=== PATIENT | female | born 1965 | race American Indian/Alaskan Native ===

== ENCOUNTER 2017-11-20 13:54 | Inpatient (IN) | payer BC ==
[2017-11-20] MEDS ORDERED: NACL 0.9% 1000 ML 1,000 ML IV ONE ×4 (14:20→21:47)
[2017-11-20] MEDS ORDERED: ZOFRAN ODT PO ONE (14:27)
--- NOTE | 2017-11-20 14:33 | Emergency Department Report ---
Chief Complaint: Hyperglycemia Stated Complaint: HIGH BLOOD SUGAR WITH VOMITING Time Seen by Provider: 11/20/17 14:20 - HPI History of Present Illness: History of diabetes recent medication change. They doubled her metformin and started glargine insulin at night, no missed doses, saw pcp this week and it was high but pt states n/v, polyuria, worsening glucose control, checking glu at home and been running 400's. hx of htn and lipid d/o, here eval n/v, elev glucose, polyuria. - Exam Vital Signs: Vital Signs 11/20/17 14:01 Temperature 98.6 F Pulse Rate 118 H Respiratory 18 Rate Blood Pressure 106/57 O2 Sat by Pulse 100 Oximetry Physical Exam: Awake alert oriented 3 nontoxic afebrile abdomen soft. MSE screening note: Focused history and physical exam performed. Due to findings the following was ordered: IV and labs ordered with saline bolus and Zofran patient to main edfor further eval ED Disposition for MSE Condition: Stable
[2017-11-20 15:27] LABS: Basophils # (Auto) 0.1 K/mm3 (0.0-0.1); Basophils % (Auto) 0.7 % (0.0-1.8); Eosinophils # (Auto) 0.1 K/mm3 (0.0-0.4); Hematocrit 45.2 % (30.3-42.9); Hemoglobin 14.8 gm/dl (10.1-14.3); Lymphocytes # (Auto) 1.8 K/mm3 (1.2-5.4); Lymphocytes % (Auto) 24.8 % (13.4-35.0); Mean Corpuscular HGB Conc 33 % (30-34); Mean Corpuscular Hemoglobin 30 pg (28-32); Mean Corpuscular Volume 93 fl (79-97); Monocytes # (Auto) 0.9 K/mm3 (0.0-0.8); Monocytes % (Auto) 11.9 % (0.0-7.3); Platelet Count 193 K/mm3 (140-440); Red Blood Count 4.89 M/mm3 (3.65-5.03); Red Cell Distribution Width 16.8 % (13.2-15.2)
[2017-11-20 15:46] LABS: Alanine Aminotransferase 34 units/L (7-56); Albumin 4.2 g/dL (3.9-5); BUN/Creatinine Ratio 6; Blood Urea Nitrogen 5 mg/dL (7-17); Hemolysis Index 8
[2017-11-20] MEDS ORDERED: ZOFRAN ONE (16:54)
[2017-11-20] MEDS ORDERED: NACL 0.9% 1000 ML 2,000 ML IV ONE (17:35)
[2017-11-20] MEDS ORDERED: CALCIUM CHLORIDE 1,000 MG in NACL 0.9% 100 ML IV ONE (17:37)
[2017-11-20 18:15] LABS: Magnesium 1.5 mg/dL (1.7-2.3)
[2017-11-20] MEDS ORDERED: ZOFRAN IV ONE (18:18)
--- NOTE | 2017-11-20 18:21 | Emergency Department Report ---
- General Chief complaint: Hyperglycemia Stated complaint: HIGH BLOOD SUGAR WITH VOMITING Time Seen by Provider: 11/20/17 14:20 Source: patient Mode of arrival: Ambulatory Limitations: No Limitations - History of Present Illness Initial comments: 52 YO FEMALE WITH N/V FOR 2 DAYS AND HYPERGLYCEMIA. PT STATES THAT SHE HAS NOT BEEN ABLE TO KEEP ANYTHING DOWN. SHE HAS NOT BEEN ABLE TO KEEP HER SUGAR UNDER CONTROL. PT HAD A LARGE SANDWICH IN FRONT OF HER READY TO EAT IT WHEN I APPEARED IN THE ROOM. PT IS STILL NAUSEATED AFTER RECEIVING 4MG OF ZOFRAN IV. SHE HAS ABDOMINAL PAIN ONLY AFTER VOMITING. SHE HAS INCREASED THIRST AND URINATIONS, DENIES FEVER, CHEST PAIN . Severity scale (0 -10): 0 - Related Data Home Medications Medication Instructions Recorded Confirmed Last Taken Lisinopril [Zestril] 20 mg PO QDAY 12/18/15 12/18/15 Unknown metFORMIN [Glucophage] 500 mg PO BID 12/18/15 12/18/15 Unknown Allergies Allergy/AdvReac Type Severity Reaction Status Date / Time latex Allergy Swelling Verified 12/03/15 12:15 ED Review of Systems ROS: Stated complaint: HIGH BLOOD SUGAR WITH VOMITING Other details as noted in HPI Constitutional: denies: chills, fever Eyes: denies: eye pain, eye discharge, vision change ENT: denies: ear pain, throat pain Respiratory: denies: cough, shortness of breath, wheezing Cardiovascular: denies: chest pain, palpitations Endocrine: no symptoms reported, increased thirst, increased urine Gastrointestinal: nausea. denies: abdominal pain, diarrhea Genitourinary: denies: urgency, dysuria, discharge Musculoskeletal: denies: back pain, joint swelling, arthralgia Skin: denies: rash, lesions Neurological: denies: headache, weakness, paresthesias Psychiatric: denies: anxiety, depression Hematological/Lymphatic: denies: easy bleeding, easy bruising ED Past Medical Hx - Past Medical History Hx Hypertension: Yes Hx Congestive Heart Failure: No Hx Diabetes: Yes Hx Asthma: No Hx COPD: No Additional medical history: high cholestrol - Surgical History Additional Surgical History: tubal ligation. ectopic x 2. right leg surgery x 2 - Social History Smoking Status: Current Every Day Smoker Substance Use Type: Alcohol - Medications Home Medications: Home Medications Medication Instructions Recorded Confirmed Last Taken Type Lisinopril [Zestril] 20 mg PO QDAY 12/18/15 12/18/15 Unknown History metFORMIN [Glucophage] 500 mg PO BID 12/18/15 12/18/15 Unknown History ED Physical Exam - General Limitations: No Limitations ED Course Vital Signs 11/20/17 11/20/17 11/20/17 14:01 16:33 17:00 Temperature 98.6 F Pulse Rate 118 H 109 H 112 H Respiratory 18 23 24 Rate Blood Pressure 106/57 98/49 Blood Pressure [Left] O2 Sat by Pulse 100 98 98 Oximetry 11/20/17 11/20/17 11/20/17 17:30 18:00 18:43 Temperature Pulse Rate 104 H 101 H 105 H Respiratory 24 23 16 Rate Blood Pressure 94/57 82/60 98/49 Blood Pressure [Left] O2 Sat by Pulse 97 98 Oximetry 11/20/17 11/20/17 11/20/17 19:15 20:00 20:50 Temperature 98.9 F Pulse Rate 89 90 97 H Respiratory 16 20 20 Rate Blood Pressure Blood Pressure 113/73 112/65 102/63 [Left] O2 Sat by Pulse 99 97 97 Oximetry 11/20/17 22:20 Temperature 98.8 F Pulse Rate 92 H Respiratory 18 Rate Blood Pressure Blood Pressure 119/69 [Left] O2 Sat by Pulse 98 Oximetry ED Medical Decision Making - Lab Data Result diagrams: 11/20/17 14:56 11/20/17 21:55 - Radiology Data Radiology results: report reviewed (ACUTE ABD:NEGATIVE) Critical care attestation.: If time is entered above; I have spent that time in minutes in the direct care of this critically ill patient, excluding procedure time. 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
--- NOTE | 2017-11-20 18:29 | History and Physical Report ---
History of Present Illness Chief complaint: My sugar is high, and i keep throwing up History of present illness: 52 YO Female with DM, HTN, HLD, Obesity, Metabolic Syndrome, presents to ED for evaluation. Pt states that she has experienced high blood glucose levels(above 450) for the past 2 days, as well as nausea and multiple episodes of vomiting. Pt states that she has not been able to keep any food down as well. Pt acknowledges polyuria, polydipsia. Pt denies fever, chills, Palpitations, syncope, BRBPR, recent ill contacts, productive cough, hematuria, or trauma. Pt seen and evaluated in ED and found to have DKA. Pt treated IAW DKA protocol and initiated on insulin drip. Pt admitted to ICU. Past History Past Medical History: diabetes, hypertension, hyperlipidemia, other (Nicotine Dependence) Past Surgical History: Other (Tubal ligation, Ectopic , R leg surgery) Social history: single, smoking. denies: alcohol abuse, prescription drug abuse Medications and Allergies Allergies Allergy/AdvReac Type Severity Reaction Status Date / Time latex Allergy Swelling Verified 12/03/15 12:15 Home Medications Medication Instructions Recorded Confirmed Last Taken Type Lisinopril [Zestril] 20 mg PO QDAY 12/18/15 12/18/15 Unknown History metFORMIN [Glucophage] 500 mg PO BID 12/18/15 12/18/15 Unknown History Active Meds: Active Medications Sodium Chloride (Nacl 0.9% 1000 Ml) 1,000 mls @ 999 mls/hr IV BOLUS ONE Stop: 11/20/17 19:18 Potassium Chloride (Kcl 10meq/100ml) 10 meq in 100 mls @ 100 mls/hr IV Q1H RASHI Stop: 11/20/17 22:59 Review of Systems Constitutional: other (high blood glucose), no weight loss, no weight gain, no fever, no chills Ears, nose, mouth and throat: no ear pain, no ear discharge, no tinnitis, no decreased hearing, no nose pain Breasts: no change in shape, no swelling, no mass Cardiovascular: no chest pain, no orthopnea, no palpitations, no rapid/ irregular heart beat, no edema Gastrointestinal: nausea, vomiting Genitourinary Female: no pelvic pain, no flank pain, no menorrhagia, no dysuria , no urinary frequency, no urgency Rectal: no pain, no incontinence, no bleeding Musculoskeletal: no neck stiffness, no neck pain, no shooting arm pain, no arm numbness/tingling, no low back pain Integumentary: no rash, no pruritis, no redness, no sores, no wounds Neurological: no transient paralysis, no paralysis, no weakness, no parathesias , no numbness, no tingling, no seizures Psychiatric: no anxiety, no memory loss, no change in sleep habits, no sleep disturbances, no insomnia, no hypersomnia, no change in appetite, no change in libido Endocrine: polyuria, nocturia, no cold intolerance, no heat intolerance, no excessive sweating, no flushing, no thyroid mass, no palpatations Hematologic/Lymphatic: no easy bruising, no easy bleeding Allergic/Immunologic: no urticaria, no allergic rhinitis, no wheezing Exam - Constitutional Vitals: Temp Pulse Resp BP Pulse Ox 98.6 F 101 H 23 82/60 98 11/20/17 14:01 11/20/17 18:00 11/20/17 18:00 11/20/17 18:00 11/20/17 18:00 General appearance: Present: mild distress - EENT Eyes: Present: PERRL ENT: hearing intact, clear oral mucosa, other (dry oral mucosa) - Neck Neck: Present: supple, normal ROM - Respiratory Respiratory effort: normal Respiratory: bilateral: CTA - Cardiovascular Heart Sounds: Present: S1 & S2. Absent: rub, click - Extremities Extremities: pulses symmetrical, No edema Peripheral Pulses: within normal limits - Abdominal General gastrointestinal: Present: soft, non-tender, non-distended, normal bowel sounds Female genitourinary: Present: normal - Integumentary Integumentary: Present: clear, warm, dry - Musculoskeletal Musculoskeletal: gait normal, strength equal bilaterally - Psychiatric Psychiatric: appropriate mood/affect, intact judgment & insight - Neurologic Neurologic: CNII-XII intact, moves all extremities Results - Labs CBC & Chem 7: 11/20/17 14:56 11/20/17 14:56 Labs: Abnormal lab results 11/20/17 11/20/17 11/20/17 Range/Units 14:04 14:56 14:56 Hgb 14.8 H (10.1-14.3) gm/dl Hct 45.2 H (30.3-42.9) % RDW 16.8 H (13.2-15.2) % [place] % (Auto) 11.9 H (0.0-7.3) % [place] # 0.9 H (0.0-0.8) K/mm3 Sodium 131 L (137-145) mmol/L Potassium 3.0 L (3.6-5.0) mmol/L Chloride 80.3 L (98-107) mmol/L BUN 5 L (7-17) mg/dL Glucose 371 H (65-100) mg/dL POC Glucose 328 H (70-105) Calcium 1.0 L* (8.4-10.2) mg/dL Magnesium (1.7-2.3) mg/dL AST 42 H (5-40) units/L 12/25/17 Range/Units 17:40 Hgb (10.1-14.3) gm/dl Hct (30.3-42.9) % RDW (13.2-15.2) % [place] % (Auto) (0.0-7.3) % [place] # (0.0-0.8) K/mm3 Sodium (137-145) mmol/L Potassium (3.6-5.0) mmol/L Chloride (98-107) mmol/L BUN (7-17) mg/dL Glucose (65-100) mg/dL POC Glucose (70-105) Calcium (8.4-10.2) mg/dL Magnesium 1.50 L (1.7-2.3) mg/dL AST (5-40) units/L Assessment and Plan - Patient Problems (1) DKA (diabetic ketoacidoses) Current Visit: Yes Status: Acute Qualifiers: Diabetes mellitus complication detail: without coma Plan to address problem: DKA Protocol: Insulin drip, serial BMP, Monitor anion gap, monitor uop q shift, IVF resuscitation, (2) Intractable nausea and vomiting Current Visit: Yes Status: Acute Plan to address problem: Antiemetic therapy, bowel rest, supportive care. (3) Metabolic syndrome Current Visit: Yes Status: Acute Plan to address problem: Increased physical activity at discharge, balanced diet, carbohydrate counting, (4) Hypokalemia Current Visit: Yes Status: Acute Plan to address problem: repleted in ED, (5) DVT prophylaxis Current Visit: Yes Status: Acute Plan to address problem: scd to BLE while in bed,
[2017-11-20 18:58] LABS: Calcium 9.1 mg/dL (8.4-10.2)
[2017-11-20 19:12] LABS: Bacteria,Urine 1+ /HPF (Negative); Bilirubin,Urine NEG (Negative); Blood,Urine SM (Negative); Color,Urine Yellow (Yellow); Hyaline Casts,Urine 8 /LPF; Mucus,Urine FEW /HPF; Nitrite,Urine NEG (Negative); Urobilinogen,Urine < 2.0 mg/dL (<2.0)
[2017-11-20] MEDS: KCL 10MEQ/100ML 10 MEQ/100 ML BAG IV SCH ×3 (19:24→22:21)
[2017-11-20] MEDS ORDERED: D50W (25GM) Syringe IV PRN (19:41)
[2017-11-20] MEDS ORDERED: MILK OF MAGNESIA PO PRN (19:41)
[2017-11-20] MEDS ORDERED: DULCOLAX PR PRN (19:41)
[2017-11-20] MEDS ORDERED: PROVENTIL IH PRN (19:41)
[2017-11-20] MEDS ORDERED: ALUM-MAG HYDROX-SIMETH 200-200-20MG/5ML PO PRN (19:41)
--- NOTE | 2017-11-20 19:46 | XRay Report ---
FINAL REPORT PROCEDURE: Abdominal series. TECHNIQUE: Supine upright views of the abdomen, frontal chest. HISTORY: Nausea and vomiting. COMPARISON: No prior studies are available for comparison. FINDINGS: The heart and mediastinum appear normal. There is calcification in the aortic arch. The lungs are clear and well expanded. There are no pleural effusions. There is no evidence of pneumoperitoneum. The bowel gas pattern is normal. The soft tissues and regional skeleton are unremarkable. IMPRESSION: No evidence of acute abdominal disease.
[2017-11-20] MEDS ORDERED: D5W/0.45% NACL/KCL 20 MEQ 20 MEQ/1,000 ML BAG IV SCH (20:00)
[2017-11-20 20:26] LABS: BUN/Creatinine Ratio 9; Blood Urea Nitrogen 6 mg/dL (7-17); Hemolysis Index 10
[2017-11-20] MEDS ORDERED: KCL 10MEQ/100ML 10 MEQ/100 ML BAG IV ONE (20:42)
[2017-11-20] MEDS: NovoLIN R 100 UNITS in NACL 0.9% 99 ML IV SCH (21:39)
[2017-11-20 21:53] LABS: Calcium 9.1 mg/dL (8.4-10.2)
[2017-11-20 22:25] LABS: BUN/Creatinine Ratio 10; Blood Urea Nitrogen 6 mg/dL (7-17); Calcium 9.3 mg/dL (8.4-10.2); Hemolysis Index 11
[2017-11-21] MEDS: KCL 10MEQ/100ML 10 MEQ/100 ML BAG IV SCH ×4 (00:02→17:09)
[2017-11-21] MEDS: NovoLIN R 100 UNITS in NACL 0.9% 99 ML IV SCH (00:03)
[2017-11-21 00:09] LABS: BUN/Creatinine Ratio 10; Blood Urea Nitrogen 6 mg/dL (7-17); Calcium 9.2 mg/dL (8.4-10.2); Hemolysis Index 9
[2017-11-21] MEDS ORDERED: D5/0.45NS 1,000 ML IV ONE (00:22)
[2017-11-21] MEDS ORDERED: LEVEMIR SUB-Q SCH (01:00)
[2017-11-21] MEDS ORDERED: D5/0.45NS 1,000 ML IV SCH (01:00)
[2017-11-21] MEDS ORDERED: D5W/NS W/KCL 20MEQ 20 MEQ/1,000 ML BAG IV SCH (01:00)
[2017-11-21 01:38] LABS: BUN/Creatinine Ratio 10; Blood Urea Nitrogen 5 mg/dL (7-17); Calcium 9.1 mg/dL (8.4-10.2); Hemolysis Index 26
[2017-11-21 06:29] LABS: BUN/Creatinine Ratio 10; Blood Urea Nitrogen 5 mg/dL (7-17); Calcium 9.1 mg/dL (8.4-10.2); Hemolysis Index 5
[2017-11-21] MEDS: NOVOLOG SUB-Q SCH ×5 (08:39→21:40)
[2017-11-21] MEDS: PROTONIX PO SCH (09:29)
[2017-11-21] MEDS: RisperDAL PO SCH ×2 (09:29→21:34)
[2017-11-21] MEDS: PROzac PO SCH (09:30)
[2017-11-21] MEDS ORDERED: OMEPRAZOLE MAGNESIUM 40 MG PO SCH (10:00)
[2017-11-21] MEDS ORDERED: ZESTRIL PO SCH (10:00)
[2017-11-21] MEDS: NACL 0.9% 1000 ML 1,000 ML IV SCH ×2 (11:52→20:09)
[2017-11-21 12:12] LABS: BUN/Creatinine Ratio 12; Blood Urea Nitrogen 6 mg/dL (7-17); Calcium 9.2 mg/dL (8.4-10.2); Hemolysis Index 98
--- NOTE | 2017-11-21 18:47 | Progress Note ---
Assessment and Plan 52 YO Female with DM, HTN, HLD, Obesity, Metabolic Syndrome, presents to ED for evaluation. Pt states that she has experienced high blood glucose levels(above 450) for the past 2 days. Also had nausea and multiple episodes of vomiting. Pt states that she has not been able to keep any food down as well. Admitted for DKA and Commenced on protocol 1) DKA (diabetic ketoacidoses) Current Visit: Yes Status: Acute Qualifiers: Diabetes mellitus complication detail: without coma Plan to address problem: DKA Protocol: Off Insulin drip, serial BMP, Monitor Anion gap closed, Continue IVF hydration (2) Intractable nausea and vomiting Current Visit: Yes Status: Acute Plan to address problem: Improved with Antiemetic therapy, bowel rest, supportive care. (3) Metabolic syndrome Current Visit: Yes Status: Acute Plan to address problem: Increased physical activity at discharge, balanced diet, carbohydrate counting, (4) Hypokalemia Current Visit: Yes Status: Acute Plan to address problem: Corrected in ED, (5) DVT prophylaxis Current Visit: Yes Status: Acute Plan to address problem: scd to BLE while in bed and lovenox, Subjective Date of service: 11/21/17 Principal diagnosis: DKA Interval history: Denies any polyuria polydipsia polyphagia. No fever or chills. Objective - Constitutional Vitals: Vital Signs - 12hr 11/21/17 11/21/17 11/21/17 07:44 08:51 11:40 Temperature 98.6 F 98.0 F Pulse Rate 87 94 H Respiratory 18 18 Rate Blood Pressure 108/69 80/38 O2 Sat by Pulse 99 99 96 Oximetry 11/21/17 11/21/17 15:17 15:39 Temperature 98.9 F 98.2 F Pulse Rate 81 87 Respiratory 20 20 Rate Blood Pressure 78/33 94/47 O2 Sat by Pulse 95 98 Oximetry General appearance: Present: no acute distress, well-nourished - EENT Eyes: PERRL, EOM intact - Neck Neck: supple, normal ROM - Respiratory Respiratory: bilateral: CTA - Cardiovascular Rhythm: regular Heart Sounds: Present: S1 & S2. Absent: gallop, rub Extremities: pulses intact, No edema, normal color, Full ROM - Gastrointestinal General gastrointestinal: Present: soft, non-tender, non-distended, normal bowel sounds - Integumentary Integumentary: clear, warm, dry - Musculoskeletal Musculoskeletal: 1, strength equal bilaterally - Neurologic Neurologic: moves all extremities - Psychiatric Psychiatric: memory intact, appropriate mood/affect, intact judgment & insight - Labs CBC & Chem 7: 11/20/17 14:56 11/21/17 11:02 Labs: Abnormal lab results 11/20/17 11/20/17 11/20/17 Range/Units 18:46 18:57 19:57 Sodium 131 L (137-145) mmol/L Potassium 3.3 L (3.6-5.0) mmol/L Chloride 83.9 L (98-107) mmol/L BUN 6 L (7-17) mg/dL Creatinine (0.7-1.2) mg/dL Glucose 379 H (65-100) mg/dL POC Glucose 344 H (70-105) Phosphorus 4.60 H (2.5-4.5) mg/dL Magnesium 1.50 L (1.7-2.3) mg/dL Urine WBC (Auto) 11.0 H (0.0-6.0) /HPF 11/20/17 11/20/17 11/20/17 Range/Units 21:40 21:55 22:50 Sodium 132 L (137-145) mmol/L Potassium 3.4 L (3.6-5.0) mmol/L Chloride 86.2 L (98-107) mmol/L BUN 6 L (7-17) mg/dL Creatinine 0.6 L (0.7-1.2) mg/dL Glucose 328 H (65-100) mg/dL POC Glucose 341 H 287 H (70-105) Phosphorus (2.5-4.5) mg/dL Magnesium (1.7-2.3) mg/dL Urine WBC (Auto) (0.0-6.0) /HPF 11/20/17 11/21/17 11/21/17 Range/Units 23:34 00:05 01:03 Sodium 133 L 135 L (137-145) mmol/L Potassium 3.3 L 3.2 L (3.6-5.0) mmol/L Chloride 90.3 L 93.9 L (98-107) mmol/L BUN 6 L 5 L (7-17) mg/dL Creatinine 0.6 L 0.5 L (0.7-1.2) mg/dL Glucose 221 H 185 H (65-100) mg/dL POC Glucose 184 H (70-105) Phosphorus (2.5-4.5) mg/dL Magnesium (1.7-2.3) mg/dL Urine WBC (Auto) (0.0-6.0) /[facility] 11/21/17 11/21/17 11/21/17 Range/Units 01:15 01:57 05:39 Sodium (137-145) mmol/L Potassium 3.0 L (3.6-5.0) mmol/L Chloride 91.2 L (98-107) mmol/L BUN 5 L (7-17) mg/dL Creatinine 0.5 L (0.7-1.2) mg/dL Glucose 212 H (65-100) mg/dL POC Glucose 194 H 182 H (70-105) Phosphorus (2.5-4.5) mg/dL Magnesium (1.7-2.3) mg/dL Urine WBC (Auto) (0.0-6.0) /[facility] 11/21/17 11/21/17 11/21/17 Range/Units 06:24 11:02 11:30 Sodium 135 L (137-145) mmol/L Potassium (3.6-5.0) mmol/L Chloride 91.3 L (98-107) mmol/L BUN 6 L (7-17) mg/dL Creatinine 0.5 L (0.7-1.2) mg/dL Glucose 363 H (65-100) mg/dL POC Glucose 225 H 348 H (70-105) Phosphorus (2.5-4.5) mg/dL Magnesium (1.7-2.3) mg/dL Urine WBC (Auto) (0.0-6.0) /[facility] 11/21/17 Range/Units 16:43 Sodium (137-145) mmol/L Potassium (3.6-5.0) mmol/L Chloride (98-107) mmol/L BUN (7-17) mg/dL Creatinine (0.7-1.2) mg/dL Glucose (65-100) mg/dL POC Glucose 409 H (70-105) Phosphorus (2.5-4.5) mg/dL Magnesium (1.7-2.3) mg/dL Urine WBC (Auto) (0.0-6.0) /[facility]
[2017-11-21 21:19] LABS: BUN/Creatinine Ratio 13; Blood Urea Nitrogen 8 mg/dL (7-17); Calcium 8.7 mg/dL (8.4-10.2); Hemolysis Index 214
[2017-11-21] MEDS: RESTORIL PO SCH (21:34)
[2017-11-21] MEDS: HABITROL TD SCH (21:35)
[2017-11-21] MEDS: LOVENOX SUB-Q SCH (21:38)
[2017-11-21] MEDS: LEVEMIR SUB-Q SCH (21:42)
[2017-11-21] MEDS ORDERED: LOVENOX SUB-Q SCH (22:00)
[2017-11-22] MEDS: NACL 0.9% 1000 ML 1,000 ML IV SCH ×3 (04:01→17:20)
[2017-11-22] MEDS ORDERED: NACL 0.9% 500 ML 500 ML IV ONE (05:07)
[2017-11-22] MEDS: NOVOLOG SUB-Q SCH ×4 (08:42→22:08)
[2017-11-22] MEDS: RisperDAL PO SCH ×2 (10:37→22:07)
[2017-11-22] MEDS: PROzac PO SCH (10:37)
[2017-11-22] MEDS: PROTONIX PO SCH (10:38)
--- NOTE | 2017-11-22 16:52 | Progress Note ---
Assessment and Plan 52 YO Female with DM, HTN, HLD, Obesity, Metabolic Syndrome, presents to ED for evaluation. Pt states that she has experienced high blood glucose levels(above 450) for the past 2 days. Also had nausea and multiple episodes of vomiting. Pt states that she has not been able to keep any food down as well. Admitted for DKA and Commenced on protocol 1) DKA (diabetic ketoacidoses) Current Visit: Yes Status: Acute Qualifiers: Diabetes mellitus complication detail: without coma Plan to address problem: DKA Protocol: Off Insulin drip, serial BMP, Anion gap closed, Continue IVF hydration (2) Intractable nausea and vomiting Current Visit: Yes Status: Acute Plan to address problem: Improved with Antiemetic therapy, bowel rest, supportive care. (3) Metabolic syndrome Current Visit: Yes Status: Acute Plan to address problem: Increased physical activity at discharge, balanced diet, carbohydrate counting, (4) Hypokalemia Current Visit: Yes Status: Acute Plan to address problem: over Corrected. We will trend (5) DVT prophylaxis Current Visit: Yes Status: Acute Plan to address problem: scd to BLE while in bed and lovenox, Subjective Date of service: 11/22/17 Principal diagnosis: DKA Interval history: Denies any polyuria polydipsia polyphagia. No fever or chills. Feeling better. Reviewed laboratory data. Objective - Constitutional Vitals: Vital Signs - 12hr 11/22/17 11/22/17 08:08 11:47 Temperature 97.5 F L 97.7 F Pulse Rate 85 94 H Respiratory 18 20 Rate Blood Pressure 101/55 94/50 O2 Sat by Pulse 99 96 Oximetry General appearance: Present: no acute distress, well-nourished - EENT Eyes: PERRL, EOM intact - Neck Neck: supple, normal ROM - Respiratory Respiratory effort: normal Respiratory: bilateral: CTA - Cardiovascular Rhythm: regular Heart Sounds: Present: S1 & S2. Absent: gallop, rub Extremities: pulses intact, No edema, normal color, Full ROM - Gastrointestinal General gastrointestinal: Present: soft, non-tender, non-distended, normal bowel sounds - Integumentary Integumentary: clear, warm, dry - Musculoskeletal Musculoskeletal: 1, strength equal bilaterally - Neurologic Neurologic: moves all extremities - Psychiatric Psychiatric: memory intact, appropriate mood/affect, intact judgment & insight - Labs CBC & Chem 7: 11/20/17 14:56 11/21/17 20:34 Labs: Abnormal lab results 11/21/17 11/21/17 11/22/17 Range/Units 20:34 21:23 05:51 Sodium 131 L (137-145) mmol/L Potassium 5.2 H D (3.6-5.0) mmol/L Chloride 93.7 L (98-107) mmol/L Carbon Dioxide 21 L (22-30) mmol/L Creatinine 0.6 L (0.7-1.2) mg/dL Glucose 379 H (65-100) mg/dL POC Glucose 385 H 265 H (70-105) 11/22/17 Range/Units 11:42 Sodium (137-145) mmol/L Potassium (3.6-5.0) mmol/L Chloride (98-107) mmol/L Carbon Dioxide (22-30) mmol/L Creatinine (0.7-1.2) mg/dL Glucose (65-100) mg/dL POC Glucose 301 H (70-105)
[2017-11-22 18:01] LABS: BUN/Creatinine Ratio 12; Blood Urea Nitrogen 7 mg/dL (7-17); Calcium 8.7 mg/dL (8.4-10.2); Hemolysis Index 3
[2017-11-22] MEDS: RESTORIL PO SCH (22:06)
[2017-11-22] MEDS: LEVEMIR SUB-Q SCH (22:06)
[2017-11-22] MEDS: LOVENOX SUB-Q SCH (22:07)
[2017-11-22] MEDS: HABITROL TD SCH (22:07)
[2017-11-23 06:52] LABS: Alanine Aminotransferase 28 units/L (7-56); Albumin 3.1 g/dL (3.9-5); BUN/Creatinine Ratio 16; Blood Urea Nitrogen 8 mg/dL (7-17); Calcium 8.7 mg/dL (8.4-10.2); Hemolysis Index 15
[2017-11-23 07:25] LABS: Hematocrit TNR % (30.3-42.9); Hemoglobin TNR gm/dl (10.1-14.3); Mean Corpuscular HGB Conc TNR % (30-34); Mean Corpuscular Hemoglobin TNR pg (28-32); Mean Corpuscular Volume TNR fl (79-97); Mean Platelet Volume TNR fl (6-12); Platelet Count TNR K/mm3 (140-440); Red Blood Count TNR M/mm3 (3.65-5.03); Red Cell Distribution Width TNR % (13.2-15.2)
[2017-11-23 07:26] LABS: Basophils # (Auto) TNR K/mm3 (0.0-0.1); Basophils % (Auto) TNR % (0.0-1.8); Eosinophils # (Auto) TNR K/mm3 (0.0-0.4); Eosinophils % (Auto) TNR % (0.0-4.3); Lymphocytes # (Auto) TNR K/mm3 (1.2-5.4); Lymphocytes % (Auto) TNR % (13.4-35.0); Monocytes # (Auto) TNR K/mm3 (0.0-0.8); Monocytes % (Auto) TNR % (0.0-7.3)
[2017-11-23] MEDS: NOVOLOG SUB-Q SCH ×3 (08:26→17:04)
[2017-11-23 08:40] LABS: Hematocrit 36.5 % (30.3-42.9); Mean Corpuscular HGB Conc 33 % (30-34); Mean Corpuscular Hemoglobin 31 pg (28-32); Mean Corpuscular Volume 94 fl (79-97); Platelet Count 141 K/mm3 (140-440); Red Cell Distribution Width 16.7 % (13.2-15.2)
[2017-11-23] MEDS: RisperDAL PO SCH (10:03)
[2017-11-23] MEDS: PROzac PO SCH (10:03)
[2017-11-23] MEDS: PROTONIX PO SCH (10:03)
--- NOTE | 2017-11-23 14:14 | Discharge Summary ---
Providers - Providers Date of Admission: 11/20/17 19:41 Attending physician: KORI ARNDT MD Primary care physician: YOAV KERNS Hospitalization Condition: Stable Hospital course: 52 YO Female with DM, HTN, HLD, Obesity, Metabolic Syndrome, presents to ED for evaluation. Pt states that she has experienced high blood glucose levels(above 450) x2 days. Also had nausea and multiple episodes of vomiting. Pt states that she has not been able to keep any food down as well. Admitted for DKA and Commenced on protocol. He received insulin drip, IV fluids anti-emetics and her legs E repleted. She clinically improved and was transitioned to subcutaneous insulin and was subsequently discharged diagnosis DKA (diabetic ketoacidoses) uncontrolled dm type 2 Intractable nausea and vomiting Metabolic syndrome Hypokalemia Disposition: DC- TO HOME OR SELFCARE Time spent for discharge: 33 minutes Core Measure Documentation - Palliative Care Palliative Care/ Comfort Measures: Not Applicable - Core Measures Any of the following diagnoses?: none Exam - Constitutional Vitals: Temp Pulse Resp BP Pulse Ox 98.7 F 93 H 20 144/76 95 11/23/17 08:16 11/23/17 08:16 11/23/17 08:16 11/23/17 08:16 11/23/17 08:16 General appearance: Present: no acute distress, well-nourished - EENT Eyes: Present: PERRL ENT: hearing intact, clear oral mucosa - Neck Neck: Present: supple, normal ROM - Respiratory Respiratory effort: normal Respiratory: bilateral: CTA - Cardiovascular Heart Sounds: Present: S1 & S2. Absent: rub, click - Extremities Extremities: pulses symmetrical, No edema Peripheral Pulses: within normal limits - Abdominal General gastrointestinal: Present: soft, non-tender, non-distended, normal bowel sounds Female genitourinary: Present: normal - Integumentary Integumentary: Present: clear, warm, dry - Musculoskeletal Musculoskeletal: gait normal, strength equal bilaterally - Psychiatric Psychiatric: appropriate mood/affect, intact judgment & insight - Neurologic Neurologic: CNII-XII intact, moves all extremities Plan Follow up with: YOAV KERNS MD [Primary Care Provider] - 3-5 Days Prescriptions: Insulin Detemir [Levemir] 40 units SUB-Q QHS #1 vial clonazePAM [Klonopin] 0.5 mg PO DAILY #3 tablet FLUoxetine HCL [Fluoxetine HCl] 20 mg PO DAILY #30 capsule Insulin Lispro [HumaLOG VIAL] 6 units SQ AC #1 vial Lisinopril [Zestril TAB] 20 mg PO QDAY #30 tablet metFORMIN [Glucophage] 1,000 mg PO BID 30 Days tablet Nicotine [Habitrol] 21 mg TD Q24H #30 patch Omeprazole Magnesium 40 mg PO DAILY #30 capsule. risperiDONE [RisperiDONE] 1 mg PO BID #60 tablet
[2017-11-23 16:56] VITALS: BP 144/84
== END 2017-11-23 17:30 | disposition home or self-care (01) | DRG 637 ==
LOC: ED 13:54 → CC1 19:41 → 3A 11-21 00:14
PROVIDERS: ADMIT Internal Medicine; ATTEND Internal Medicine
DX: E11.10 Type 2 diabetes mellitus with ketoacidosis without coma (principal); E43 Unspecified severe protein-calorie malnutrition; E88.81 Metabolic syndrome and other insulin resistance; E66.9 Obesity, unspecified; E87.6 Hypokalemia; I10 Essential (primary) hypertension; F17.200 Nicotine dependence, unspecified, uncomplicated; E83.51 Hypocalcemia; E83.42 Hypomagnesemia; Z60.2 Problems related to living alone; E78.5 Hyperlipidemia, unspecified; Z79.899 Other long term (current) drug therapy; Z91.040 Latex allergy status; Z98.51 Tubal ligation status; Z72.89 Other problems related to lifestyle; Z68.35 Body mass index [BMI] 35.0-35.9, adult
CPT/HCPCS: 36415; 74022; 80048; 80053; 81001; 82010; 82310; 82330; 82805; 82962; 83735; 84100; 85025; 85027; 93005; 93010; J1650; J1815; J1818; J2405; J3480; J7030

== ENCOUNTER 2018-03-06 10:20 | Emergency (ER) | payer BC, MEDICARE ==
[2018-03-06 11:11] LABS: Basophils # (Auto) 0.1 K/mm3 (0.0-0.1); Basophils % (Auto) 0.6 % (0.0-1.8); Eosinophils # (Auto) 0.1 K/mm3 (0.0-0.4); Eosinophils % (Auto) 1.2 % (0.0-4.3); Hematocrit 50.6 % (30.3-42.9); Hemoglobin 16.8 gm/dl (10.1-14.3); Lymphocytes % (Auto) 33.1 % (13.4-35.0); Mean Corpuscular HGB Conc 33 % (30-34); Mean Corpuscular Hemoglobin 32 pg (28-32); Mean Corpuscular Volume 96 fl (79-97); Monocytes # (Auto) 0.6 K/mm3 (0.0-0.8); Monocytes % (Auto) 6.3 % (0.0-7.3); Platelet Count 208 K/mm3 (140-440); Red Blood Count 5.31 M/mm3 (3.65-5.03); Red Cell Distribution Width 17.3 % (13.2-15.2)
[2018-03-06 11:12] LABS: Alanine Aminotransferase 37 units/L (7-56); Albumin 4.1 g/dL (3.9-5); BUN/Creatinine Ratio 4; Blood Urea Nitrogen 2 mg/dL (7-17); Hemolysis Index 13
[2018-03-06] MEDS ORDERED: MORPHINE IV ONE (12:25)
[2018-03-06] MEDS ORDERED: ZOFRAN IV ONE (12:25)
--- NOTE | 2018-03-06 12:30 | Emergency Department Report ---
ED Abdominal Pain HPI - General Chief Complaint: Abdominal Pain Stated Complaint: ABDOMINAL/BACK PAIN Time Seen by Provider: 03/06/18 12:20 Source: patient Mode of arrival: Ambulatory Limitations: No Limitations - History of Present Illness Initial Comments: Patient is 52 years old female with a past medical history of diabetes and GERD. Patient presented to the ER complaining of right upper and lower quadrant abdominal pain. Patient stated that the pain is sharp and does not radiate. Patient denied any fever, chest pain, cough or shortness of breath. No diarrhea. Patient denied any urinary symptoms. MD Complaint: abdominal pain -: Gradual Location: RUQ, RLQ Radiation: none Severity scale (0 -10): 8 Quality: stabbing Improves With: nothing Worsens With: nothing Associated Symptoms: nausea. denies: vomiting, diarrhea, fever - Related Data Home Medications Medication Instructions Recorded Confirmed Last Taken Temazepam [Restoril] 15 mg PO QHS 11/21/17 11/21/17 Unknown Previous Rx's Medication Instructions Recorded Last Taken Type Detemir (Nf) [Levemir (Nf)] 40 units SUB-Q QHS #1 vial 11/23/17 Unknown Rx FLUoxetine HCL [Fluoxetine HCl] 20 mg PO DAILY #30 capsule 11/23/17 Unknown Rx Insulin Lispro [HumaLOG VIAL] 6 units SQ AC #1 vial 11/23/17 Unknown Rx Lisinopril [Zestril TAB] 20 mg PO QDAY #30 tablet 11/23/17 Unknown Rx Nicotine [Habitrol] 21 mg TD Q24H #30 patch 11/23/17 Unknown Rx Omeprazole Magnesium 40 mg PO DAILY #30 capsule. 11/23/17 Unknown Rx clonazePAM [Klonopin] 0.5 mg PO DAILY #3 tablet 11/23/17 Unknown Rx metFORMIN [Glucophage] 1,000 mg PO BID 30 Days tablet 11/23/17 Unknown Rx risperiDONE [RisperiDONE] 1 mg PO BID #60 tablet 11/23/17 Unknown Rx Allergies Allergy/AdvReac Type Severity Reaction Status Date / Time latex Allergy Swelling Verified 03/06/18 10:27 ED Review of Systems ROS: Stated complaint: ABDOMINAL/BACK PAIN Other details as noted in HPI Comment: All other systems reviewed and negative Constitutional: denies: chills, fever Respiratory: denies: cough, orthopnea, shortness of breath, SOB with exertion Cardiovascular: denies: chest pain, palpitations, dyspnea on exertion, orthopnea Gastrointestinal: abdominal pain, nausea. denies: vomiting, diarrhea, constipation, hematemesis, melena, hematochezia Musculoskeletal: denies: back pain Neurological: denies: headache, weakness, numbness, paresthesias, confusion ED Past Medical Hx - Past Medical History Hx Hypertension: Yes Hx Congestive Heart Failure: No Hx Diabetes: Yes Hx Asthma: No Hx COPD: No Hx HIV: No Additional medical history: high cholestrol - Surgical History Additional Surgical History: tubal ligation. ectopic x 2. right leg surgery x 2 - Social History Smoking Status: Current Every Day Smoker Substance Use Type: Alcohol - Medications Home Medications: Home Medications Medication Instructions Recorded Confirmed Last Taken Type Temazepam [Restoril] 15 mg PO QHS 11/21/17 11/21/17 Unknown History Detemir (Nf) [Levemir (Nf)] 40 units SUB-Q QHS #1 vial 11/23/17 Unknown Rx FLUoxetine HCL [Fluoxetine HCl] 20 mg PO DAILY #30 capsule 11/23/17 Unknown Rx Insulin Lispro [HumaLOG VIAL] 6 units SQ AC #1 vial 11/23/17 Unknown Rx Lisinopril [Zestril TAB] 20 mg PO QDAY #30 tablet 11/23/17 Unknown Rx Nicotine [Habitrol] 21 mg TD Q24H #30 patch 11/23/17 Unknown Rx Omeprazole Magnesium 40 mg PO DAILY #30 capsule.dr 11/23/17 Unknown Rx clonazePAM [Klonopin] 0.5 mg PO DAILY #3 tablet 11/23/17 Unknown Rx metFORMIN [Glucophage] 1,000 mg PO BID 30 Days tablet 11/23/17 Unknown Rx risperiDONE [RisperiDONE] 1 mg PO BID #60 tablet 11/23/17 Unknown Rx ED Physical Exam - General Limitations: No Limitations General appearance: alert, in no apparent distress - Head Head exam: Present: atraumatic, normocephalic, normal inspection - Eye Eye exam: Present: normal appearance, PERRL - ENT ENT exam: Present: normal exam, normal orophraynx, mucous membranes moist - Neck Neck exam: Present: normal inspection, full ROM. Absent: tenderness, meningismus, lymphadenopathy, thyromegaly - Respiratory Respiratory exam: Present: normal lung sounds bilaterally. Absent: respiratory distress, wheezes, rales, rhonchi, stridor, chest wall tenderness, decreased breath sounds, prolonged expiratory - Cardiovascular Cardiovascular Exam: Present: regular rate, normal rhythm, normal heart sounds - GI/Abdominal GI/Abdominal exam: Present: soft, tenderness, normal bowel sounds. Absent: distended, guarding, rebound, rigid, diminished bowel sounds, organomegaly, mass , bruit, pulsatile mass, hernia - Extremities Exam Extremities exam: Present: normal inspection, full ROM, normal capillary refill. Absent: tenderness, pedal edema, calf tenderness - Back Exam Back exam: Present: normal inspection, full ROM. Absent: tenderness, CVA tenderness (L) - Neurological Exam Neurological exam: Present: alert, oriented X3, CN II-XII intact, normal gait - Skin Skin exam: Present: warm, intact, normal color ED Course Vital Signs 03/06/18 03/06/18 10:27 12:45 Temperature 98.5 F Pulse Rate 107 H Respiratory 18 20 Rate Blood Pressure 136/84 O2 Sat by Pulse 98 Oximetry ED Medical Decision Making - Lab Data Result diagrams: 03/06/18 10:34 03/06/18 10:34 - Radiology Data Radiology results: report reviewed Referring Physician: ALEJANDRO WHITE Patient Name: SABRINA MOTA Date of : 1965 Sex: Female Report Date: 2018-03-06 Report Status: [place] [address] Cat Scan Report Signed Patient: SABRINA MOTA MR#: [id number] : 1965 Acct:[id number] Age/Sex: 52 / F ADM Date: 03/06/18 Loc: ED Attending Dr: Ordering Physician: ALEJANDRO WHITE Date of Service: 03/06/18 Procedure(s): CT abdomen pelvis w con Accession Number(s): [id number] cc: ALEJANDRO WHITE FINAL REPORT EXAM: CT ABDOMEN PELVIS W CON HISTORY: abdominal pain TECHNIQUE: Standard enhanced CT of the abdomen and pelvis. Coronal and sagittal reconstruction was also performed. Delayed imaging through the kidneys and bladder was obtained. Contrast: 100 mL Isovue 300 given IV. PRIORS: CT a/P 12/03/2015 FINDINGS: Within the abdomen, the liver is diffusely decreased in density consistent with moderate fatty metamorphosis, worse than seen previously. There is focal fatty sparing near the gallbladder fossa. There is also focal fatty deposition along the anterior falciform ligament. Along the posterior aspect of the falciform ligament, there is a hypodense 3.6 x 3.2 x 2.4 cm focus, through which normal vasculature traverses (axial image 9, series 4, coronal image 48, series 270). This is probably an additional area of focal fatty deposition. The spleen, pancreas, gallbladder, adrenal glands, and kidneys are unremarkable. No evidence for retroperitoneal or pelvic lymphadenopathy is seen. The bowel loops have normal caliber. No soft tissue mass, fluid collection, inflammatory change, or free air is seen within the abdomen or pelvis. The appendix is normal. Within the pelvis, the bladder is unremarkable. The uterus is normal. No evidence for mass or lymphadenopathy is seen in the pelvis. Images through the upper abdomen include the lung bases which are expanded and clear. Bony structures show no focal abnormalities and are intact. Bilateral facet joint degenerative changes from L4 through S1 are noted. IMPRESSION: 1. Worsening fatty metamorphosis of the liver 2. Increasing focal fatty deposition along the falciform ligament. This includes a new area of hypodense rounded focus posteriorly along the falciform ligament. Transcribed By: [facility] Dictated By: JUHI WARD MD Electronically Authenticated By: JUHI WARD MD Signed Date/Time: 03/06/181539 DD/ 39 TD/TT: 03/06/181539 Critical care attestation.: If time is entered above; I have spent that time in minutes in the direct care of this critically ill patient, excluding procedure time. ED Disposition Clinical Impression: Abdominal pain, Fatty liver Disposition: DC-01 TO HOME OR SELFCARE Is pt being admited?: No Condition: Stable Instructions: Abdominal Pain (ED), Non-Alcoholic Fatty Liver Disease (ED) Referrals: PRIMARY CARE, [Primary Care Provider] - 3-5 Days
[2018-03-06 13:12] LABS: Bilirubin,Urine NEG (Negative); Blood,Urine SM (Negative); Color,Urine Yellow (Yellow); Urobilinogen,Urine < 2.0 mg/dL (<2.0)
--- NOTE | 2018-03-06 15:45 | Cat Scan Report ---
FINAL REPORT EXAM: CT ABDOMEN PELVIS W CON HISTORY: abdominal pain TECHNIQUE: Standard enhanced CT of the abdomen and pelvis. Coronal and sagittal reconstruction was also performed. Delayed imaging through the kidneys and bladder was obtained. Contrast: 100 mL Isovue 300 given IV. PRIORS: CT a/P 12/03/2015 FINDINGS: Within the abdomen, the liver is diffusely decreased in density consistent with moderate fatty metamorphosis, worse than seen previously. There is focal fatty sparing near the gallbladder fossa. There is also focal fatty deposition along the anterior falciform ligament. Along the posterior aspect of the falciform ligament, there is a hypodense 3.6 x 3.2 x 2.4 cm focus, through which normal vasculature traverses (axial image 9, series 4, coronal image 48, series 270). This is probably an additional area of focal fatty deposition. The spleen, pancreas, gallbladder, adrenal glands, and kidneys are unremarkable. No evidence for retroperitoneal or pelvic lymphadenopathy is seen. The bowel loops have normal caliber. No soft tissue mass, fluid collection, inflammatory change, or free air is seen within the abdomen or pelvis. The appendix is normal. Within the pelvis, the bladder is unremarkable. The uterus is normal. No evidence for mass or lymphadenopathy is seen in the pelvis. Images through the upper abdomen include the lung bases which are expanded and clear. Bony structures show no focal abnormalities and are intact. Bilateral facet joint degenerative changes from L4 through S1 are noted. IMPRESSION: 1. Worsening fatty metamorphosis of the liver 2. Increasing focal fatty deposition along the falciform ligament. This includes a new area of hypodense rounded focus posteriorly along the falciform ligament.
[2018-03-06] MEDS ORDERED: SUBLIMAZE IV ONE (16:13)
[2018-03-06 16:52] VITALS: BP 132/82
== END 2018-03-06 16:52 | disposition home or self-care (01) ==
LOC: ED 10:20
DX: K76.0 Fatty (change of) liver, not elsewhere classified (principal); I10 Essential (primary) hypertension; E11.9 Type 2 diabetes mellitus without complications; F17.200 Nicotine dependence, unspecified, uncomplicated; Z91.040 Latex allergy status; Z98.51 Tubal ligation status; Z79.84 Long term (current) use of oral hypoglycemic drugs
CPT/HCPCS: 36415; 74177; 80053; 81001; 83690; 84703; 85025; 96374; 96375; 99284; J2270; J2405; J3010; Q9967